=== PATIENT | male | born 1970 | race African-American/Black ===

== ENCOUNTER 2020-02-03 17:04 | Emergency (ER) | payer BC, SELFPAY ==
--- NOTE | ~2020-02-03 | XR_ITS ---
XR knee LT min 4V 02/03/2020 18:40 Indication: Left knee pain Procedure: 4 views left knee Comparison: No prior studies for comparison. Findings: Mild-moderate osteoarthritis of the left knee. Small joint effusion. No fracture or traumat ic malalignment. No foreign bodies. Impression: 1: No acute fracture. 2: Mild-moderate osteoarthritis. 3: Small joint effusion. Reviewed, dictated and finalized at location A. Impression: 1: No acute fracture. 2: Mild-moderate osteoarthritis. 3: Small joint effusion.
[2020-02-03 17:43] VITALS: BP 199/119; PULSE 99; RESP 16; TEMP 37.1; O2SAT 98
--- NOTE | 2020-02-03 19:52 | ED.GENADULT ---
HPI - General Adult General Chief complaint: Extremity Injury, Lower <Jere Stahl PA-C - Last Filed: 02/03/20 19:57> Stated complaint: left knee pain <Jere Stahl PA-C - Last Filed: 02/03/20 19:57> Time Seen by Provider: 02/03/20 19:22 <Jere Stahl PA-C - Last Filed: 02/03/20 19:57> Source: patient <Jere Stahl PA-C - Last Filed: 02/03/20 19:57> Mode of arrival: ambulatory <Jere Stahl PA-C - Last Filed: 02/03/20 19:57> Limitations: no limitations <Jere Stahl PA-C - Last Filed: 02/03/20 19:57> History of Present Illness HPI narrative: Patient is a 50-year-old male who presents to emergency department for evaluation of left knee pain noting aching pain to the lateral aspect of the left knee for the last several days patient notes he has had pain for months in this knee even years potentially patient denies any new injury or trauma presents in no distress pain is worse with lying notes he gets intermittent cramping but otherwise denies any other complaints <Jere Stahl PA-C - Last Filed: 02/03/20 19:57> Related Data Allergies/adverse reactions: Allergies Allergy/AdvReac Type Severity Reaction Status Date / Time No Known Allergies Allergy Unverified 08/29/19 10:49 <Jere Stahl PA-C - Last Filed: 02/03/20 19:57> Review of Systems Review of Systems: All systems reviewed & are unremarkable except as noted in HPI and below <Jere Stahl PA-C - Last Filed: 02/03/20 19:57> [facility] Past Medical History Medical History: Medical History Benign reactive hypertension Gout Morbid (severe) obesity due to excess calories Morbid obesity <Jere Stahl PA-C - Last Filed: 02/03/20 19:57> Social History Social History: Social History Social History: Single Smoking status: Never smoker Second hand tobacco smoke exposure: No Alcohol intake: current Drinks per week: 2 Substance use: never Substance use type: does not use Gender identity (if verbalized by the patient): Male <MIRNA Woody Last Filed: 02/03/20 19:57> Exam Narrative: Exam Narrative: GENERAL: Well-appearing, well-nourished, and in no acute distress. HEAD: Normocephalic, atraumatic. EYES: PERRLA and EOMI. ENT: Nares clear, no rhinorrhea or epistaxis. Mucous membranes moist. CHEST: Clear to auscultation. No respiratory distress. No wheezes rales or rhonchi HEART: Regular rate and rhythm. No murmur heard. EXTREMITIES: Normal range of motion. No edema. Tenderness along the medial aspect left knee remainder of extremity nontender no deformities SKIN: Warm, dry, no rash. NEURO: No focal deficits. Alert and oriented x3. Neurovascularly intact PSYCH: Normal mood and affect. <MIRNA Woody Last Filed: 02/03/20 19:57> Course Course Emergency Course: Patient in the room in no distress advised to follow with primary care and provided orthopedic referral unremarkable radiographs <MIRNA Woody Last Filed: 02/03/20 19:57> Vital Signs Vital signs: Vital Signs Temperature 98.8 F 02/03/20 17:43 Pulse Rate 99 02/03/20 17:43 Respiratory Rate 16 02/03/20 17:43 Blood Pressure 199/119 H 02/03/20 17:43 Pulse Oximetry 98 02/03/20 17:43 Temperature 98.8 F 02/03/20 17:43 Pulse Rate 88 02/03/20 20:10 Respiratory Rate 18 02/03/20 20:10 Blood Pressure 150/70 H 02/03/20 20:10 Pulse Oximetry 99 02/03/20 20:10 <MIRNA Woody Last Filed: 02/03/20 19:57> Vital Signs Temperature 98.8 F 02/03/20 17:43 Pulse Rate 99 02/03/20 17:43 Respiratory Rate 16 02/03/20 17:43 Blood Pressure 199/119 H 02/03/20 17:43 Pulse Oximetry 98 02/03/20 17:43 Temperature 98.8 F 02/03/20 17:43 Pulse Rate 88 02/03/20 20:10 Respiratory Rate 18
[2020-02-03 20:10] VITALS: BP 150/70; PULSE 88; RESP 18; O2SAT 99
== END 2020-02-03 20:11 | disposition home or self-care (01) ==
PROVIDERS: Emergency Provider General Practice; PCP Family Medicine
DX: M25.562 Pain in left knee (principal); I10 Essential (primary) hypertension; M10.9 Gout, unspecified; E66.01 Morbid (severe) obesity due to excess calories; Z68.41 Body mass index [BMI] 40.0-44.9, adult; M17.12 Unilateral primary osteoarthritis, left knee
CPT/HCPCS: 73564; 99283

== ENCOUNTER 2020-03-24 14:21 | Outpatient (CLI) | payer BC, SELFPAY ==
--- NOTE | ~2020-03-24 | XR_ITS ---
EXAMINATION: XR chest 2V DATE: 03/24/2020 14:34 INDICATION: Shortness of breath TECHNIQUE: PA and lateral views of the chest were obtained. COMPARISON: None FINDINGS: The lungs are clear with no focal airspace opacities, pulmonary edema, pleural effusion or pneumothor ax. The cardiomediastinal silhouette is normal. Mild thoracic spondylosis. IMPRESSION: 1. No acute cardiopulmonary disease. Reviewed, dictated and finalized at location A.
== END 2020-03-24 14:22 | disposition home or self-care (01) ==
PROVIDERS: PCP Family Medicine; Visit Provider Family Medicine
DX: R06.02 Shortness of breath (principal)
CPT/HCPCS: 71046

== ENCOUNTER 2020-04-27 14:10 | Observation (INO) | payer BC, SELFPAY ==
[2020-04-27] VITALS (45 sets, daily range): BP systolic 140–222; BP diastolic 108–152; PULSE 88–107; RESP 19–34; TEMP 36.7–37; O2SAT 95–100; BMI 44.9
--- NOTE | ~2020-04-27 | US_ITS ---
EXAMINATION: US retroperitoneal duplex ltd DATE: 04/28/2020 14:05 CDT INDICATION: Accelerated hypertension. TECHNIQUE: Sonographic imaging of the kidneys was performed with a 3.5 MHz transducer. Retroperitone al duplex sonogram of the renal arteries also obtained. FINDINGS: No focal flow abnormalities are seen in the renal arteries on color Doppler. The peak syst olic velocity ranges of the right and left renal arteries and aorta are 62 cm per second, 59 cm per s econd, and 60 cm per second, respectively. The velocities and renal to aortic ratios are within maria isabel l limits. IMPRESSION: 1. No Doppler evidence of renal artery stenosis. Reviewed, dictated and finalized at location B.
--- NOTE | ~2020-04-27 | XR_ITS ---
EXAMINATION: XR chest 2V DATE: 04/27/2020 14:47 INDICATION: Shortness of breath. Abnormal electrocardiogram. TECHNIQUE: Frontal and lateral views of the chest were obtained. COMPARISON: Chest 2 views 03/24/2020 FINDINGS: The chest demonstrates clear lungs without pneumonia, pleural effusion, or pneumothorax. Th e heart size is normal. IMPRESSION: 1. No acute cardiopulmonary disease. Reviewed, dictated and finalized at location A.
--- NOTE | ~2020-04-27 | CT_ITS ---
EXAMINATION: CTA chest PE protocol DATE: 04/27/2020 16:19 INDICATION: Shortness of breath. Abnormal electrocardiogram. TECHNIQUE: Computed tomography angiography (CTA) of the chest was performed with 100 mL Omnipaque-350 intravenous contrast timed to evaluate the pulmonary arteries. Coronal maximum intensity projection 3D-reconstructions were created by the technologist. Automated exposure control and iterative reconst ruction technique were employed. The dose-length product was 1054.07 mGy-cm. COMPARISON: None. FINDINGS: The visualized portions of the lung bases demonstrate mild atelectasis. There is a 4 mm nod ule in right lower lobe, likely benign. No pleural effusion. Cardiomegaly is noted. No pericardial ef fusion. There is no pulmonary embolus. There is ectasia of ascending aorta measuring 4.2 cm. There ar e bridging endplate osteophytes at multiple levels in the spine, consistent with diffuse idiopathic s keletal hyperostosis (DISH). IMPRESSION: 1. No pulmonary embolus. Reviewed, dictated and finalized at location A. IMPRESSION: 1. No pulmonary embolus.
--- NOTE | 2020-04-27 14:11 | ECG_ITS ---
Measurements Intervals [place] Rate: 103 P: 56 UT: 140 QRS: -13 QRSD: 88 T: 70 QT: 362 QTc: 475 Interpretive Statements SINUS TACHYCARDIA LEFT ATRIAL ENLARGEMENT DELAYED PRECORDIAL R/S TRANSITION POSSIBLE LEFT VENTRICULAR HYPERTROPHY BORDERLINE T WAVE ABNORMALITY- HIGH LATERAL LEADS BASELINE ARTIFACT- AVL, V2 BORDERLINE ECG Electronically Signed On 04-27-2020 15:12:05 CDT by Percy Gama D.O.
[2020-04-27 14:35] LABS: Basophils Absolute Auto 0.1 K/mm3 (0.0-0.1); Basophils Percent Auto 0.4 % (0.2-1.2); Eosinophils Absolute Auto 0.7 K/mm3 (0-0.3); Eosinophils Percent Auto 4.2 % (0-4.4); Hematocrit 45.7 % (42.0-52.0); Immature Granulocyte Absolute 0.06 K/mm3 (0.00-0.031); Immature Granulocyte Percent A 0.4 % (0-0.5); Lymphocytes Absolute Auto 3.66 K/mm3 (0.9-3.2); Lymphocytes Percent Auto 22.7 % (18.3-44.2); Mean Corpuscular HGB Conc 32.8 g/dl (32-36); Mean Corpuscular Hemoglobin 26.3 pg (26-34); Mean Platelet Volume 10.8 fl (7.4-10.4); Monocytes Absolute Auto 1.1 K/mm3 (0.1-0.6); Neutrophils Absolute Auto 10.5 K/mm3 (1.3-6.7); Neutrophils Percent Auto 65.3 % (45.5-73.1); Platelet Count Result 282 k/mm3 (150-375); Red Blood Count 5.71 M/mm3 (4.6-6.20); Red Cell Distribution Width 15.9 % (11.5-14.5); White Blood Count 16.1 K/mm3 (4.5-10.0)
[2020-04-27 14:43] LABS: Anion Gap 8 mmol/L (8-16); Blood Urea Nitrogen 20 mg/dL (9-20); Calcium 8.7 mg/dL (8.4-10.2); Carbon Dioxide 29 mmol/L (22-30); Chloride 104 mmol/L (98-107); Estimated CRCL calculation 79 ml/min; Estimated Glomerular Filt Rate > 60; Glucose 96 mg/dL (75-110); Potassium 3.2 mmol/L (3.4-5.0); Sodium 141 mmol/L (137-145)
--- NOTE | 2020-04-27 14:46 | ED.GENADULT ---
HPI - General Adult General Chief complaint: Shortness of Breath/Dyspnea Stated complaint: abnormal EKG per PCP Time Seen by Provider: 04/27/20 14:23 Source: patient History of Present Illness HPI narrative: Patient is a 50 y/o male complaining of mild shortness of breath for 2 weeks. He states that fast walking or other exertion aggravates his SOB. He has no chest pain, cough or fever. He was seen in his doctor's office today. He had EKG done and was told that his EKG looked abnormal and he was sent to ED. Related Data Home Medications Medication Instructions Recorded Confirmed amlodipine 10 mg PO DAILY 04/27/20 04/27/20 lisinopril 04/27/20 Allergies Allergy/AdvReac Type Severity Reaction Status Date / Time No Known Allergies Allergy Verified 04/27/20 14:20 Review of Systems Constitutional: Constitutional: Denies chills, Denies fever(s), Reports headache(s) and Denies weakness Eyes: Eyes: Denies blurry vision ENT: Reports headache(s) and Denies neck pain Cardiovascular: Cardiovascular: Denies chest pain and Reports dyspnea Respiratory: Respiratory: Denies cough and Reports dyspnea Gastrointestinal: Gastrointestinal: Denies abdominal pain, Denies diarrhea, Denies nausea and Denies vomiting Genitourinary: Genitourinary: Denies hematuria and Denies dysuria Musculoskeletal: Musculoskeletal: Denies back pain and Denies neck pain Neurologic: Reports headache(s) and Denies weakness [facility] Past Medical History Medical History (Updated 04/27/20 @ 19:02 by Gemini Brock MD) Benign reactive hypertension Gout Morbid (severe) obesity due to excess calories Morbid obesity Social History Social History Social History: Single Smoking status: Never smoker Second hand tobacco smoke exposure: No Alcohol intake: current Substance use: never Substance use type: does not use Gender identity (if verbalized by the patient): Male Sexual Orientation (if Verbalized by the Patient): Straight or Heterosexual Exam Const: General: no acute distress and well developed Orientation/consciousness: oriented to person, oriented to place, oriented to time and patient oriented x3 HENMT: Head: normocephalic Ears: external ears normal General nose exam: Normal external nose present Eyes: General: appearance normal, both eyes and all related structures Conjunctivae: conjunctivae normal Neck: Neck: normal visual inspection and full ROM Chest: Chest palpation & inspection: normal inspection of the chest and no tenderness Resp: Effort & Inspection: normal respiratory effort Auscultation: clear to auscultation bilaterally Cardio: Rate: regular rate Rhythm: regular rhythm GI: GI Palp: No abdominal tenderness and Yes Soft to palpation Skin: General skin exam: normal color and turgor normal Neuro: General: oriented to person, oriented to place, oriented to time and patient oriented x3 Cognition (Neuro): normal cognition Extrem: General: normal to inspection, full ROM and no pedal edema Psych: Appearance: grossly normal Mental Status: mental status grossly normal Affect: normal affect Course Consultations Consultation #1: Discussed with JASMINE Manzo, who agrees to admit to Dr. Arredondo. Date: 04/27/20 Time: 16:57 Consultation #2: Discussed with Dr. Narvaez, who agrees to consult. Date: 04/27/20 Time: 17:34 Vital Signs Vital signs: Vital Signs Temperature 37.0 C 04/27/20 14:15 Pulse Rate 104 H 04/27/20 14:15 Respiratory Rate 32 H 04/27/20 14:15 Blood Pressure 222/142 H 04/27/20 14:15 Pulse Oximetry 100 04/27/20 14:15 Temperature 37.0 C 04/27/20 14:15 Pulse Rate 96 04/27/20 18:48 Respiratory Rate 20 04/27/20 18:48 Blood Pressure 160/123 H 04/27/20 18:48 Pulse Oximetry 99 04/27/20 18:48 Medical Decision Making Vital Signs Vital Signs: Vital Signs Temperature 37.0 C 04/27/20 14:15 Pulse Rate 104 H
[2020-04-27] MEDS: amLODIPine BESYLATE 5 MG TABLET 10 MG PO ×2 (15:07→22:31)
[2020-04-27 15:10] LABS: D Dimer 1.31 ug/mL (<0.48)
[2020-04-27] MEDS: POTASSIUM CHLORIDE 20 MEQ TABLET 40 MEQ PO (15:12)
[2020-04-27] MEDS: LABETALOL HCL INJ 100 MG/20 ML VIAL 20 MG IV PUSH ×2 (15:16→15:59)
[2020-04-27 15:27] LABS: NT Pro B Type Natriuretic Pept 665 PG/ML (5-100); Troponin I 0.041 ng/mL (0.000-0.034)
[2020-04-27] MEDS: cloNIDine HCL 0.1 MG TABLET 0.2 MG PO (16:40)
[2020-04-27] MEDS: hydrALAZINE HCL 20 MG/ML VIAL IV PUSH (16:40)
--- NOTE | 2020-04-27 17:55 | PC.NURSE ---
Informed by erp to hold Cardene drip until pt gets to floor.
[2020-04-27 18:02] LABS: Troponin I 0.039 ng/mL (0.000-0.034)
--- NOTE | 2020-04-27 19:30 | PM.IMHP ---
H&P: HPI History of Present Illness Date/Time: 04/27/20 19:30 Chief complaint: Abnormal EKG. Narrative: Lawrence Petty Jr. is a 50-year-old male with hypertension, suspected obstructive sleep apnea, and gout who presented to the emergency department earlier today for evaluation after he was found to have an abnormal EKG at his primary care provider's office. He had a routine appointment with Dr. Hill today, for a blood pressure check and to be set up with what sounds like a home apnea screening. His systolic blood pressure was over 200 prompting an EKG which was abnormal. Blood pressure has been as high as 221/152 since arrival to the emergency department and with further questioning he has been monitoring his pressures at home. It sounds as though they are always quite high, in the 170s to 180 systolic over the 110s to 120 diastolic. For the past 2 weeks, however, he has had readings around 200/130 and he has put himself on light duty at work because of that. For the last 1.5 weeks he has had intermittent frontal headaches, mainly near the right church, and has noticed some increase in shortness of breath. He goes on to say that for the last month and a half he has had progressive dyspnea on lesser and lesser exertion and it is now to the point where he will have to stop retirement up a flight of steps in order to catch his breath. He also reports orthopnea, PND, and daytime somnolence. He has intermittent lower extremity edema as well. He denies fever, chills, sweats, nausea, vomiting, chest pain, pleuritic pain, change in urine output, auditory and visual changes, focal weakness, paresthesias, and vertigo. Review of Systems Review of Systems: Narrative: Twelve systems were reviewed with pertinent positives and negatives as per HPI. Weight has remained stable. No fever, chills, or sweats. He denies cough. No sick contacts. He denies exposure to those positive for COVID-19. No diarrhea or dysuria. Except as documented, all other systems were reviewed and are negative. [facility] Past Medical History Medical History (Updated 04/28/20 @ 02:14 by Anais Duggan PA-C) Elevated fasting blood sugar Hemoglobin A1c in March 2020 was 5.8%. Gout Hypertension Morbid obesity Surgical History Surgical History (Updated 04/28/20 @ 02:14 by Anais Duggan PA-C) Status post ORIF of fracture of ankle (~1996) Left. Family History Family History (Updated 04/28/20 @ 02:08 by Anais Duggan PA-C) Father Cerebrovascular accident Mother Hypertension Sibling Brain aneurysm Social History Social History (Updated 04/28/20 @ 02:08 by Anais Duggan PA-C) Social History: Surrogate decision maker: Niko Petty, cousin. Code status: Full code. Smoking status: Never smoker Second hand tobacco smoke exposure: No Alcohol intake: former Alcohol use details: No alcohol consumption 30 days. Prior to that he would drink between a 6 and a 12 pack on the weekends and occasionally half a pt of liquor. Substance use: never Substance use type: does not use Additional living arrangements comments: The patient resides in [place] with his elderly mother. Not . Has 2 children. Additional occupation/education comments: [employer] in [employer] services. Gender identity (if verbalized by the patient): Male Sexual Orientation (if Verbalized by the Patient): Straight or Heterosexual Spiritual care concerns: No Meds Home Medications and Allergies Home Medications Medication Instructions Recorded Confirmed Type colchicine 0.6 mg capsule 0.6 mg PO DAILY #30 cap 01/08/20 04/27/20 Rx allopurinol 300 mg tablet 300 mg PO DAILY #30 tablet 03/09/20 04/27/20 Rx furosemide 20 mg tablet 20 mg PO QAM PRN #30 tablet 03/09/20 04/27/20 Rx hydralazine 25 mg tablet 25 mg PO BID #60 tablet 03/24/20 04/27/20 Rx amlodipine 10 mg PO DAILY 04/27/20 04/27/20 History lisinopril 20 mg PO DAILY 04/27/20
--- NOTE | 2020-04-27 19:33 | ADMGEN ---
This patient, Lawrence Petty Jr., was admitted to Intensive Care Unit-8 at 1855. Patient/family oriented to hospital policies and general routines including ID bracelet, bed and alarms, visiting hours, pain management, procedures, bathroom and other care routines, personal items, smoking policy, room service/diet, and visiting hours. Information on how to activate the Rapid Response Team has been discussed. Patient/Family are encouraged to report perceived risks to care and to ask questions if they do not understand what they are told or what they should do.
--- NOTE | 2020-04-27 19:59 | PC.NURSE ---
Was told in report that Rosanna Duggan wanted to hold off on cardene drip at this time and watch blood pressure.
[2020-04-27 21:14] LABS: Troponin I 0.036 ng/mL (0.000-0.034)
[2020-04-27] MEDS: ACETAMINOPHEN 325 MG TABLET 650 MG PO (21:25)
[2020-04-27] MEDS: hydrALAZINE HCL 50 MG TABLET PO (22:30)
[2020-04-27] MEDS: HYDROcodone/acetaminophen (*CRX) 5-325 MG TABLET 1 TAB PO (23:35)
[2020-04-28] VITALS (17 sets, daily range): BP systolic 130–196; BP diastolic 85–138; PULSE 85–99; RESP 12–28; TEMP 36.5–37; O2SAT 94–98
--- NOTE | 2020-04-28 | ECHO_ITS ---
Patient Info Name: Lawrence Petty Age: 50 years : 1970 Gender: Male Ht: 70 in Wt: 313 lbs BSA: 2.72 m2 HR: 90 bpm BP: 159 / 120 mmHg Heart Rhythm: Sinus Rhythm Technical Quality: Good Exam Date: 04/28/2020 11:31 AM Exam Location: [facility] Patient Status: Inpatient Admit Date: 04/27/2020 Staff Ordering Physician: Lisa Narvaez MD Leaf Tinner: Sb Devine RDCS Attending Provider: Rick Arredondo MD Referring Physician: Brice STALEY; Exam Type: CA echo doppler color flow Study Info Indications R06.02 - Shortness of breath Complete two-dimensional, color flow and Doppler transthoracic echocardiogram is performed. Strain analysis performed. History/Risk Factors Hypertensive urgency w/ chest pain, abnormal EKG, [place], edema. Summary 1. Complete two-dimensional, color flow and Doppler transthoracic echocardiogram is performed. 2. There is moderate concentric increased left ventricular wall thickness. 3. Left ventricular systolic function is mildly reduced, estimated at 50-55%. 4. Calculated ejection fraction was somewhat lower at 41%. 5. Mild mitral regurgitation. 6. Trivial aortic regurgitation. Left Ventricle Left ventricular chamber dimension is normal. Left ventricular systolic function is mildly reduced, estimated at 50-55%. There is moderate concentric increased left ventricular wall thickness. The left ventricular diastolic function is grade II diastolic dysfunction. Right Ventricle Right ventricular chamber dimension is normal. Left Atria Left atrial chamber dimension is normal. Right Atria Right atrial chamber dimension is normal. Aortic Valve The aortic valve is trileaflet. There is trace aortic valve regurgitation. Pulmonic Valve The pulmonic valve is normal. There is trace pulmonic regurgitation. Mitral Valve The mitral valve has normal leaflets. There is mild mitral valve regurgitation. Tricuspid Valve The tricuspid valve leaflets are normal. Pericardium/Pleural The pericardium appears normal. Aorta The aortic root size at the sinus of Valsalva is normal. Left Ventricular Outflow Tract Name Value Normal LVOT 2D LVOT Diameter 2.4 cm LVOT Doppler LVOT Peak Gradient 4 mmHg LVOT Mean Gradient 2 mmHg LVOT VTI 15 cm LVOT VTI/AV VTI Ratio 0.7 LVOT Stroke Volume 65 ml LVOT CO 5.8 l/min LVOT CI 2.1 l/min/m2 Mitral Valve Name Value Normal MV Doppler MV Peak Gradient 1 mmHg MV Mean Gradient 0 mmHg MV Decel [place] 837 cm/s2 MV PHT 27 ms
[2020-04-28 07:10] LABS: Hematocrit 43.1 % (42.0-52.0); Hemoglobin 14.4 g/dL (14.0-18.0); Mean Corpuscular HGB Conc 33.4 g/dl (32-36); Mean Corpuscular Volume 77.9 fl (80-100); Mean Platelet Volume 9.9 fl (7.4-10.4); Platelet Count Result 256 k/mm3 (150-375); Red Blood Count 5.53 M/mm3 (4.6-6.20); Red Cell Distribution Width 15.9 % (11.5-14.5); White Blood Count 12.3 K/mm3 (4.5-10.0)
[2020-04-28] MEDS: hydrALAZINE HCL 50 MG TABLET PO ×2 (07:23→17:16)
[2020-04-28] MEDS: allopurinoL 300 MG TABLET PO (07:23)
[2020-04-28] MEDS: lisinopriL 20 MG TABLET PO (07:23)
[2020-04-28] MEDS: COLCHICINE 0.6 MG TABLET PO (07:23)
[2020-04-28 07:26] LABS: Alanine Aminotransferase 17 U/L (4-50); Albumin Level 3.9 g/dL (3.5-5.1); Alkaline Phosphatase 101 U/L (38-126); Anion Gap 11 mmol/L (8-16); Aspartate Amino Transferase 23 U/L (17-59); Bilirubin,Total 0.7 mg/dL (0.2-1.3); Blood Urea Nitrogen 14 mg/dL (9-20); Calcium 8.6 mg/dL (8.4-10.2); Carbon Dioxide 27 mmol/L (22-30); Chloride 106 mmol/L (98-107); Estimated CRCL calculation 96 ml/min; Estimated Glomerular Filt Rate > 60; Glucose 112 mg/dL (75-110); Sodium 144 mmol/L (137-145)
--- NOTE | 2020-04-28 08:51 | WPDCNINT ---
Assessment and Plan Assessment and plan (1) Hypertensive urgency: Code(s): I16.0 - Hypertensive urgency Status: Acute Assessment and Plan: patient presented with hypertensive emergency with blood pressures of 221/152 in the ER. - Patient's baseline blood pressures of 170s to 180s over 110s to 120. - Patient was restarted on hydralazine, lisinopril and amlodipine with improvement in his blood pressures - nicardipine infusion was not started. - Will not drop blood pressures too low too quickly due to risk of stroke (2) Acute kidney injury: Code(s): N17.9 - Acute kidney failure, unspecified Status: Acute Assessment and Plan: creatinine down to 1.2 from 1.5 on admission. given elevated blood pressures, patient is at risk for renal disease - will obtain renal artery duplex studies - patient continuing oral fluid intake - will monitor renal function, electrolytes and urine output (3) Hypokalemia: Code(s): E87.6 - Hypokalemia Status: Acute Assessment and Plan: will replete potassium (4) Morbid obesity: Code(s): E66.01 - Morbid (severe) obesity due to excess calories Status: Acute Assessment and Plan: counseled patient on weight loss, exercise and healthy living Additional Plan discussed with patient at length and updated with his condition and plan of care. Code status: Full code critical care time spent: 44 minutes Due to a high probability of clinically significant, life threatening deterioration, the patient required my highest level of preparedness to intervene emergently and I personally spent this critical care time directly and personally managing the patient. This critical care time included obtaining a history; examining the patient; pulse oximetry; ordering and review of studies; arranging urgent treatment with development of a management plan; evaluation of patient's response to treatment; frequent reassessment; and discussions with other providers. It was exclusive of separately billable procedures and treating other patients and teaching time. Please see Assessment and Plan section and the rest of the note for further information on patient assessment and treatment [employer] Consult Note Consult date: 04/28/20 Time Seen: 06:58 Reason for consult: hypertensive urgency HPI: Lawrence Petty Jr. is a 50 year old male with past medical history of essential hypertension, elevated flash 10 blood sugar, gout, morbid obesity presented to the ED on 04/27/2020 from primary care doctor's office with some EKG changes and hypertensive urgency. His blood pressure was 221/152. And the patient he hovers between 170s to 180s systolic over 110s to 120s diastolic. Patient has been taking his medications regularly. Stated that over the past 2 weeks his Systolic blood pressures have been around 200 and his diastolic pressures between 120s to 130s. He has been having some frontal headaches, increasing shortness of breath. He also reported orthopnea, paroxysmal next nocturnal dyspnea and daytime somnolence. Also complains of intermittent lower extremity edema. Patient was given multiple p.o. medications in the ER. Patient's repeat systolic blood pressures were between 140s to 180s. Nicardipine infusion was never started. Patient seen and examined this morning in the ICU, denies any headaches, visual changes, shortness of breath. States he feels better. Patient denies any tobacco use, illicit drug abuse, has not had a alcohol drinking 30 days. Patient states he normally drinks a little heavy on the weekends but not during the working days. troponins was mildly elevated 0.041, 0.039, 0.036. At and is back to normal at 1.2 ( 1.5 on admission). D-dimer was elevated in the ER patient had a CTA scan of the chest, which did not show any pulmonary embolism. Chest x-ray the ER did not show any cardiopulmonary disease. Patient currently on room air with good O2 sats
--- NOTE | 2020-04-28 10:06 | PM.CNCAR ---
Assessment and Plan Additional Plan This is a 50-year-old black male with longstanding hypertension which obviously is poorly controlled on his current regimen. Interestingly his PCP has selected 3 vasodilators to treat this and despite this regimen blood pressure is continuing to be problematic. I am going to initiate adjusting his regimen by adding a beta-olivia. Metoprolol 50 mg q.12 hours will be started as of today and we will observe his response to that. His blood pressure obviously does not have to be come ideal while he is in the hospital but 1 would like to improved significantly from his the current situation. An echocardiogram has been requested which is appropriate as we try to recommend medical adjustments to his hypertension regimen. I will of course review that after it takes place later today. Further recommendations will be based on review of those findings and response to treatment. Following discharge we may or may not have to continue to follow this patient in the office depending on echocardiographic findings. Camron Rico MD [facility] History of Present Illness History of Present Illness Consult date/time: 04/28/20 10:06 Consult reason: hypertension Reason For Visit: Abnormal EKG. Narrative: This is a 50-year-old man who I am seeing at the request of the hospitalist/building estimator to become involved in his case as it pertains to hypertension management. It does not appear that there is a separate cardiac problem going on here. The patient has a history of hypertension that began in his mid 30s and has been treated initially by a physician in the [place] area and more recently transferred his care to his current PCP. He states that his blood pressure has not been well controlled despite taking medications and he reports to be compliant with them. His current regimen and clue did amlodipine, hydralazine and lisinopril. He went to his PCP yesterday for a routine checkup and I do not believe was having any symptoms that he tells me but his blood pressure was quite high with systolics is in excess of 200 mmHg. He states an ECG was done and there was concern about the appearance of his electrocardiogram so he was sent to the emergency room where he was evaluated and then admitted to the hospital. The ED physician looks like they gave him a dose of clonidine and potentially ordered a nicardipine infusion I do not know that any of that was ever given. He is in the ICU room 8. Right now and is supine and appears to be essentially comfortable. Again he does not report any previous knowledge of any cardiac problems. He in fact he states he has really never been hospitalized overnight in the past. 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 He does have a family history of relatively severe hypertension but no family history of premature coronary artery disease. He denies any symptoms of chest pain pressure or heaviness he is not experiencing any palpitations orthopnea or PND. Review of Systems Constitutional: Constitutional: Reports no additional constitutional complaints Eyes: Eyes: Reports no additional eye complaints ENT: Reports system reviewed and no additional complaints, except as documented Cardiovascular: Cardiovascular: Reports no additional cardiovascular complaints Respiratory: Respiratory: Reports no additional respiratory complaints Gastrointestinal: Gastrointestinal: Reports no additional gastrointestinal complaints Musculoskeletal: Musculoskeletal: Reports no additional musculoskeletal complaints Neurologic: Reports system reviewed and no additional complaints, except as documented Endocrine: Endocrine: Reports no additional endocrine complaints Hematologic/Lymphatic: Hematologic/Lymphatic: Reports no additional hematologic/lymphatic complaints Allergic/Immunologic: Allergic/Immunologic: Reports no additional allergic/immunologic complaints PMFSH Past Medical Hi
[2020-04-28] MEDS: POTASSIUM CHLORIDE 20 MEQ TABLET 40 MEQ PO (10:45)
[2020-04-28] MEDS: METOPROLOL TARTRATE 50 MG TAB PO ×2 (10:46→20:40)
[2020-04-28] MEDS: POTASSIUM CHLORIDE 20 MEQ TABLET PO (10:46)
--- NOTE | 2020-04-28 15:56 | PM.IMPN ---
Progress Note: A&P Assessment and Plan (1) Hypertensive urgency: Code(s): I16.0 - Hypertensive urgency Status: Acute Assessment and Plan: 04/28/20 15:56 patient is a 50-year-old male with history of hypertension patient has been seen by his primary physician and had been taking amlodipine, hydralazine and lisinopril to control his blood pressure patient states he is compliant with his medication however his blood pressure remains high, he was seen by his primary care physician for routine check he did not have any complaints however his systolic blood pressure was over 200, an EKG was abnormal, patient was referred to the emergency department for further evaluation, currently patient is in ICU room 8. he was seen by fuel distribution system operator and recommended patient will benefit adding metoprolol 50 mg b.i.d. to his current regimen, will continue to monitor his blood pressure while in the hospital, to further evaluate patient had a renal artery ultrasound which did not show any stenosis, cardiac echo is pending. upon arrival patient had mildly elevated tropes and flat unlikely acute coronary syndrome rather demand ischemia due to severely elevated systolic blood pressure, patient was seen by fuel distribution system operator and ischemic workup is recommended. currently patient denies any chest pain shortness of breath palpitation fever or chills, his mother is present in the room (2) Elevated serum creatinine: Code(s): R79.89 - Other specified abnormal findings of blood chemistry Status: Acute Assessment and Plan: most likely secondary longstanding hold hypertension will monitor (3) Hypokalemia: Code(s): E87.6 - Hypokalemia Status: Acute Assessment and Plan: will supplement (4) Shortness of breath: Code(s): R06.02 - Shortness of breath Status: Acute Assessment and Plan: resolved (5) Elevated troponin level: Code(s): R77.8 - Other specified abnormalities of plasma proteins Status: Acute Assessment and Plan: mildly and flat unlikely acute coronary syndrome (6) Leukocytosis: Code(s): D72.829 - Elevated white blood cell count, unspecified Status: Acute Assessment and Plan: most likely secondary to stress due to elevated blood pressure trending down (7) Gout: Code(s): M10.9 - Gout, unspecified Status: Acute Assessment and Plan: clinically stable (8) Morbid obesity: Code(s): E66.01 - Morbid (severe) obesity due to excess calories Status: Acute Assessment and Plan: patient will benefit from dietary consult (9) Suspected sleep apnea: Code(s): R29.818 - Other symptoms and signs involving the nervous system Status: Acute Assessment and Plan: patient will benefit from sleep study and pulmonology consult Subjective Date/time seen: 04/28/20 15:56 patient is a 50-year-old male with history of hypertension patient has been seen by his primary physician and had been taking amlodipine, hydralazine and lisinopril to control his blood pressure patient states he is compliant with his medication however his blood pressure remains high, he was seen by his primary care physician for routine check he did not have any complaints however his systolic blood pressure was over 200, an EKG was abnormal, patient was referred to the emergency department for further evaluation, currently patient is in ICU room 8. he was seen by fuel distribution system operator and recommended patient will benefit adding metoprolol 50 mg b.i.d. to his current regimen, will continue to monitor his blood pressure while in the hospital, to further evaluate patient had a renal artery ultrasound which did not show any stenosis, cardiac echo is pending. upon arrival patient had mildly elevated tropes and flat unlikely acute coronary syndrome rather demand ischemia due to severely elevated systolic blood pressure, chiara
--- NOTE | 2020-04-28 16:19 | PC.NURSE ---
1410-PATIENT TRANSFERRED TO ROOM 259. REPORT GIVEN TO LUCIANO BARKER. ALL QUESTIONS ANSWERED.
[2020-04-28] MEDS: amLODIPine BESYLATE 5 MG TABLET 10 MG PO (17:15)
[2020-04-29] VITALS (15 sets, daily range): BP systolic 145–181; BP diastolic 90–106; PULSE 81–98; RESP 15–20; TEMP 36.4–37.1; O2SAT 98–99
[2020-04-29 08:08] LABS: Anion Gap 9 mmol/L (8-16); Blood Urea Nitrogen 16 mg/dL (9-20); Calcium 8.9 mg/dL (8.4-10.2); Carbon Dioxide 27 mmol/L (22-30); Chloride 106 mmol/L (98-107); Estimated CRCL calculation 98 ml/min; Estimated Glomerular Filt Rate > 60; Glucose 106 mg/dL (75-110); Magnesium 2.1 mg/dL (1.6-2.3); Potassium 3.3 mmol/L (3.4-5.0); Sodium 142 mmol/L (137-145)
[2020-04-29] MEDS: COLCHICINE 0.6 MG TABLET PO (08:57)
[2020-04-29] MEDS: lisinopriL 20 MG TABLET PO (08:57)
[2020-04-29] MEDS: METOPROLOL TARTRATE 50 MG TAB PO ×2 (08:57→20:31)
[2020-04-29] MEDS: hydrALAZINE HCL 50 MG TABLET PO ×3 (08:58→21:22)
[2020-04-29] MEDS: allopurinoL 300 MG TABLET PO (10:14)
--- NOTE | 2020-04-29 15:27 | PM.PNCARD ---
Progress Note: A&P Assessment and Plan (1) Hypertensive urgency: Code(s): I16.0 - Hypertensive urgency Status: Acute Assessment and Plan: BP remains significantly elevated. and remains poorly controlled. Increase hydralazine to 50 mg 3 times daily. EF mildly reduced at 50-55% with moderate LVH most likely hypertensive heart disease. No CHF. Repeat BP after hydralazine 50 mg now and repeat in 1-2 hours. If BP significantly improved and remains so may consider discharge later this evening, however, anticipate he will need to stay overnight to ensure blood pressure remains better controlled. This will be deferred to the primary service as there are no other acute cardiovascular issues at this time. (2) Acute kidney injury: Code(s): N17.9 - Acute kidney failure, unspecified Status: Acute Assessment and Plan: Improved, creatinine 1.2 this morning. (3) Hypokalemia: Code(s): E87.6 - Hypokalemia Status: Acute Assessment and Plan: Remains low at 3.3 and has not been supplemented. As such, will give 40 mEq p.o. x1 potassium chloride. Check BMP in a.m.. Subjective Date/time seen: Date of service: 04/29/20 15:27 Follow-up for uncontrolled hypertension. Feels well denies shortness of breath, chest pain, dizziness or palpitations. No new issues overnight. BP variable but remains elevated. Tolerating medications thus far. Review of Systems Constitutional: Constitutional: Reports no additional constitutional complaints Eyes: Eyes: Reports no additional eye complaints ENT: Reports system reviewed and no additional complaints, except as documented Cardiovascular: Cardiovascular: Reports no additional cardiovascular complaints Respiratory: Respiratory: Reports no additional respiratory complaints Gastrointestinal: Gastrointestinal: Reports no additional gastrointestinal complaints Musculoskeletal: Musculoskeletal: Reports no additional musculoskeletal complaints Neurologic: Reports system reviewed and no additional complaints, except as documented Endocrine: Endocrine: Reports no additional endocrine complaints Hematologic/Lymphatic: Hematologic/Lymphatic: Reports no additional hematologic/lymphatic complaints Allergic/Immunologic: Allergic/Immunologic: Reports no additional allergic/immunologic complaints Exam Const: General: comfortable and no acute distress Other: Pleasant obese black male in no distress HENMT: Mouth: Yes moist mucous membranes Eyes: Sclera: sclerae normal Pupils: Equal, round and reactive pupils present Neck: Neck: no JVD Thyroid: thyroid normal Other: Carotid pulses are normal upstrokes bilaterally no bruits are audible Resp: Effort & Inspection: normal respiratory effort Auscultation: clear to auscultation bilaterally Cardio: Rate: regular rate Rhythm: regular rhythm Other: No current murmur gallop or rub PMI is difficult to palpate given his size GI: Auscultation: normal bowel sounds Skin: General skin exam: normal color Neuro: Cranial nerves: Yes Equal, round and reactive pupils present Cognition (Neuro): normal cognition Extrem: General: normal to inspection Objective Data Vital Signs Vital Signs: Vital Signs - 24 hr 04/28/20 15:57 04/28/20 16:30 04/28/20 20:00 Temperature 36.8 C Pulse Rate 85 92 91 Respiratory Rate 21 H 20 Blood Pressure 158/103 H 196/138 H Pulse Oximetry 95 04/28/20 20:40 04/28/20 22:00 04/29/20 00:00 Temperature 37.0 C Pulse Rate 96 96 93 Respiratory Rate 18 Blood Pressure 148/90 H Pulse Oximetry 98 04/29/20 04:00 04/29/20 05:41 04/29/20 08:00 Temperature 36.8 C Pulse Rate 81 92 98 Respiratory Rate 16 16 Blood Pressure 181/106 H 157/103 H Pulse Oximetry 99 98 04/29/20 08:30 04/29/20 08:57 04/29/20 10:10 Temperature Pulse Rate 98 98 Respiratory Rate Blood Pressure 156/94 H Pulse Oximetry 04/29/20 12:00 04/29/20 14:05 [place]
[2020-04-29] MEDS: POTASSIUM CHLORIDE 20 MEQ PACKET (FOR LIQUID) 40 MEQ PO (16:06)
[2020-04-29] MEDS: amLODIPine BESYLATE 5 MG TABLET 10 MG PO (16:06)
--- NOTE | 2020-04-29 17:28 | PM.IMPN ---
Progress Note: A&P Assessment and Plan (1) Hypertensive urgency: Code(s): I16.0 - Hypertensive urgency Status: Acute Assessment and Plan: 04/29/20 17:28 patient is a 50-year-old male with history of hypertension patient has been seen by his primary physician and had been taking amlodipine, hydralazine and lisinopril to control his blood pressure patient states he is compliant with his medication however his blood pressure remains high, he was seen by his primary care physician for routine check he did not have any complaints however his systolic blood pressure was over 200, an EKG was abnormal, patient was referred to the emergency department for further evaluation, currently patient is in ICU room 8. he was seen by plastic card grader cardroom and recommended patient will benefit adding metoprolol 50 mg b.i.d. to his current regimen, will continue to monitor his blood pressure while in the hospital, to further evaluate patient had a renal artery ultrasound which did not show any stenosis, cardiac echo is pending. upon arrival patient had mildly elevated tropes and flat unlikely acute coronary syndrome rather demand ischemia due to severely elevated systolic blood pressure, today 04/29 patient was seen by plastic card grader cardroom patient BP was still elevated in 160/100 and patient was given extra dose of Hydralzine 50mg and BP was rechecked after over 1 hour now its systolic is 180, will monitor patient overnight and plan tomorrow. Patint denies any CP, SOB or dizziness. (2) Elevated serum creatinine: Code(s): R79.89 - Other specified abnormal findings of blood chemistry Status: Acute Assessment and Plan: most likely secondary longstanding hold hypertension will monitor (3) Hypokalemia: Code(s): E87.6 - Hypokalemia Status: Acute Assessment and Plan: will supplement (4) Shortness of breath: Code(s): R06.02 - Shortness of breath Status: Acute Assessment and Plan: resolved (5) Elevated troponin level: Code(s): R77.8 - Other specified abnormalities of plasma proteins Status: Acute Assessment and Plan: mildly and flat unlikely acute coronary syndrome (6) Leukocytosis: Code(s): D72.829 - Elevated white blood cell count, unspecified Status: Acute Assessment and Plan: most likely secondary to stress due to elevated blood pressure trending down (7) Gout: Code(s): M10.9 - Gout, unspecified Status: Acute Assessment and Plan: clinically stable (8) Morbid obesity: Code(s): E66.01 - Morbid (severe) obesity due to excess calories Status: Acute Assessment and Plan: patient will benefit from dietary consult (9) Suspected sleep apnea: Code(s): R29.818 - Other symptoms and signs involving the nervous system Status: Acute Assessment and Plan: patient will benefit from sleep study and pulmonology consult Subjective Date/time seen: 04/29/20 17:28 patient is a 50-year-old male with history of hypertension patient has been seen by his primary physician and had been taking amlodipine, hydralazine and lisinopril to control his blood pressure patient states he is compliant with his medication however his blood pressure remains high, he was seen by his primary care physician for routine check he did not have any complaints however his systolic blood pressure was over 200, an EKG was abnormal, patient was referred to the emergency department for further evaluation, currently patient is in ICU room 8. he was seen by plastic card grader cardroom and recommended patient will benefit adding metoprolol 50 mg b.i.d. to his current regimen, will continue to monitor his blood pressure while in the hospital, to further evaluate patient had a renal artery ultrasound which did not show any stenosis, cardiac echo is pending. upon arrival patient had mildly elevated tropes and flat unlikely acute
[2020-04-30] VITALS (9 sets, daily range): BP systolic 132–149; BP diastolic 79–95; PULSE 86–94; RESP 18–20; TEMP 35.9–36.2; O2SAT 98–99
[2020-04-30] MEDS: hydrALAZINE HCL 50 MG TABLET PO ×2 (06:16→13:51)
[2020-04-30] MEDS: COLCHICINE 0.6 MG TABLET PO (09:13)
[2020-04-30] MEDS: METOPROLOL TARTRATE 50 MG TAB PO (09:13)
[2020-04-30] MEDS: allopurinoL 300 MG TABLET PO (09:14)
[2020-04-30] MEDS: lisinopriL 20 MG TABLET PO (09:14)
--- NOTE | 2020-04-30 10:31 | PM.PNCARD ---
Progress Note: A&P Assessment and Plan (1) Hypertensive urgency: Code(s): I16.0 - Hypertensive urgency Status: Acute Assessment and Plan: BP remains elevated but acceptably improved. Continue Hydralazine 50 mg 3 times daily. EF mildly reduced at 50-55% with moderate LVH most likely hypertensive heart disease. No CHF. -Pt stable for discharge from [facility] follow up as scheduled. (2) Acute kidney injury: Code(s): N17.9 - Acute kidney failure, unspecified Status: Acute Assessment and Plan: Improved, labs not drawn this AM. I have placed order, pending. (3) Hypokalemia: Code(s): E87.6 - Hypokalemia Status: Acute Assessment and Plan: BMP pending. Replete K+ as warranted. May need to check as outpatient if he will require ongoing supplementation. Subjective Date/time seen: Date of service: 04/30/20 10:31 Follow-up for uncontrolled hypertension feels well this morning. BP improved, denies dizziness, lightheadedness, chest pain, shortness of breath, palpitations. No new issues overnight. Patient would like to go home. Review of Systems Constitutional: Constitutional: Reports no additional constitutional complaints Eyes: Eyes: Reports no additional eye complaints ENT: Reports system reviewed and no additional complaints, except as documented Cardiovascular: Cardiovascular: Reports no additional cardiovascular complaints Respiratory: Respiratory: Reports no additional respiratory complaints Gastrointestinal: Gastrointestinal: Reports no additional gastrointestinal complaints Musculoskeletal: Musculoskeletal: Reports no additional musculoskeletal complaints Neurologic: Reports system reviewed and no additional complaints, except as documented Endocrine: Endocrine: Reports no additional endocrine complaints Hematologic/Lymphatic: Hematologic/Lymphatic: Reports no additional hematologic/lymphatic complaints Allergic/Immunologic: Allergic/Immunologic: Reports no additional allergic/immunologic complaints Exam Const: General: comfortable and no acute distress Other: Pleasant obese black male in no distress HENMT: Mouth: Yes moist mucous membranes Eyes: Sclera: sclerae normal Pupils: Equal, round and reactive pupils present Neck: Neck: no JVD Thyroid: thyroid normal Other: Carotid pulses are normal upstrokes bilaterally no bruits are audible Resp: Effort & Inspection: normal respiratory effort Auscultation: clear to auscultation bilaterally Cardio: Rate: regular rate Rhythm: regular rhythm Other: No current murmur gallop or rub PMI is difficult to palpate given his size GI: Auscultation: normal bowel sounds Skin: General skin exam: normal color Neuro: Cranial nerves: Yes Equal, round and reactive pupils present Cognition (Neuro): normal cognition Extrem: General: normal to inspection Objective Data Vital Signs Vital Signs: Vital Signs - 24 hr 04/29/20 12:00 04/29/20 14:05 04/29/20 16:00 Temperature 37.1 C Pulse Rate 81 84 88 Respiratory Rate 15 Blood Pressure 160/100 H Pulse Oximetry 98 04/29/20 17:24 04/29/20 20:00 04/29/20 20:31 Temperature Pulse Rate 90 88 Respiratory Rate Blood Pressure 180/102 H Pulse Oximetry 04/29/20 21:23 04/29/20 22:23 04/30/20 00:00 Temperature 36.4 C L Pulse Rate 96 88 Respiratory Rate 20 Blood Pressure 155/106 H 145/90 H Pulse Oximetry 99 04/30/20 04:00 04/30/20 06:00 04/30/20 08:00 Temperature 36.2 C L Pulse Rate 88 86 94 Respiratory Rate 20 Blood Pressure 141/79 H Pulse Oximetry 98 04/30/20 08:47 04/30/20 09:13 04/30/20 10:24 Temperature Pulse Rate 88 90 Respiratory Rate 18 Blood Pressure 149/90 H 149/93 H Pulse Oximetry Intake/Output Intake/Output: Intake & Output 04/27/20 04/28/20 04/29/20 04/30/20 23:59 23:59 23:59 23:59 Intake Total 1525 1330 620 Output Total 600 Balance 925 1330 6
[2020-04-30 10:46] LABS: Anion Gap 8 mmol/L (8-16); Blood Urea Nitrogen 20 mg/dL (9-20); Carbon Dioxide 30 mmol/L (22-30); Chloride 103 mmol/L (98-107); Estimated CRCL calculation 84 ml/min; Estimated Glomerular Filt Rate > 60; Glucose 166 mg/dL (75-110); Potassium 3.2 mmol/L (3.4-5.0); Sodium 141 mmol/L (137-145)
--- NOTE | 2020-04-30 12:42 | PM.DS ---
DS: Admitting Diagnosis Admitting Diagnosis Admitting Diagnosis: Abnormal EKG. DS: Discharge Diagnosis Discharge Diagnosis (1) Hypertensive urgency: Code(s): I16.0 - Hypertensive urgency Status: Acute Assessment and Plan: Patient is a 50-year-old male with history of hypertension patient has been seen by his primary physician and had been taking amlodipine, hydralazine and lisinopril to control his blood pressure, he was seen by his primary care physician for routine check he did not have any complaints however his systolic blood pressure was over 200, an EKG was abnormal, patient was referred to the emergency department for further evaluation. As per previous notes, pt is now stable for discharge, Bp has corrected. Seen by cardiology was initially in ICU for HTN urgency. Pt was advised compliance to medications. (2) Elevated serum creatinine: Code(s): R79.89 - Other specified abnormal findings of blood chemistry Status: Acute Assessment and Plan: Secondary longstanding hold hypertension will monitor as outpatient. (3) Hypokalemia: Code(s): E87.6 - Hypokalemia Status: Acute Assessment and Plan: Will supplement with potassium and monitor again before adding potassium to his longterm medications. (4) Shortness of breath: Code(s): R06.02 - Shortness of breath Status: Resolved Assessment and Plan: Resolved (5) Elevated troponin level: Code(s): R77.8 - Other specified abnormalities of plasma proteins Status: Acute Assessment and Plan: Flat unlikely to be acute coronary syndrome (6) Leukocytosis: Code(s): D72.829 - Elevated white blood cell count, unspecified Status: Acute Assessment and Plan: Most likely secondary to stress due to elevated blood pressure (7) Gout: Code(s): M10.9 - Gout, unspecified Status: Acute Assessment and Plan: Clinically stable (8) Morbid obesity: Code(s): E66.01 - Morbid (severe) obesity due to excess calories Status: Acute Assessment and Plan: Patient will benefit from dietary consult, PCP to follow. (9) Suspected sleep apnea: Code(s): R29.818 - Other symptoms and signs involving the nervous system Status: Acute Assessment and Plan: Patient will benefit from sleep study and pulmonology consult PCP to follow. DS: Summary Time Spent with Patient Time attestation: Total time spent providing and/or coordinating discharge services: 40 minutes on day of discharge Exam Narrative: Exam Narrative: Patient is comfortable HEENT: eyes are clear and none icteric LUNGS:CTA HEART: RR S1S2 ABD: BS+, Soft and nontender Lower extremities: no edema SKIN: nonjaundiced Neuro: grossly intact. DS: Data Data Completed and Pending Labs on day of discharge: Labs from last 24 hours 04/30/20 10:09 Sodium 141 Potassium 3.2 L Chloride 103 Carbon Dioxide 30 Anion Gap 8 BUN 20 Creatinine 1.40 H Estim Creat Clear Calc 84 Estimated GFR > 60 Glucose 166 H Calcium 9.0 Discharge Plan Discharge Attending physician on discharge: Rachel Taylor Consulting providers: Lisa Narvaez ; Camron Rico Discharging Clinician: Rachel Taylor Anticipated Discharge Date/Time: 04/30/20 12:39 Patient Disposition: Home, Self-Care Activity: other - see discharge instructions Diet: low sodium Discharge Instructions: CARDIOLOGY DISCHARGE INSTRUCTIONS: ACTIVITY:Activity with precautions to avoid falls. Rise slowly from a seated or lying position. Take your medications at the same time every day. Obtain a blood pressure cuff with a properly fitted cuff. Check your blood pressure on a daily basis after you have taking your morning medications. Write these down and bring the readings to your follow-up appointments. FOLLOW-UP: Follow-up with Dr. Hill 1-2 we
[2020-04-30] MEDS: POTASSIUM CHLORIDE 20 MEQ TABLET PO (13:50)
== END 2020-04-30 14:09 | disposition home or self-care (01) ==
LOC: ANHED 15:15 → ANHICU 19:02 → ANH2MED 04-28 17:18 → ANHICU 05-04 13:04
PROVIDERS: Internal Medicine; Internal Medicine Cardiovascular Disease; Admitting Provider Family Medicine; Emergency Provider Emergency Medicine; PCP Family Medicine; Visit Provider Family Medicine
DX: I16.0 Hypertensive urgency (principal); R06.02 Shortness of breath; N17.9 Acute kidney failure, unspecified; D72.829 Elevated white blood cell count, unspecified; E66.01 Morbid (severe) obesity due to excess calories; E87.6 Hypokalemia; I10 Essential (primary) hypertension; M10.9 Gout, unspecified; R79.89 Other specified abnormal findings of blood chemistry; R77.8 Other specified abnormalities of plasma proteins; Z68.42 Body mass index [BMI] 45.0-49.9, adult
CPT/HCPCS: 36415; 71046; 71275; 80048; 80053; 83735; 83880; 84484; 85025; 85027; 85380; 93005; 93306; 93976; 94762; 96374; 96375; 96376; 99285; A9270; G0378; J0360; Q9967

== ENCOUNTER 2020-10-29 08:23 | Outpatient (CLI) | payer BC, SELFPAY ==
--- NOTE | ~2020-10-29 | XR_ITS ---
XR ankle LT min 3V DATE: 10/29/2020 08:45 INDICATION: Pain and swelling TECHNIQUE: 4 views COMPARISON: None FINDINGS: There is a screw in the medial malleolus and plate and screws along the distal fibula. Ther e is bony bridging across the distal tibia fibula. There is osteoarthritic change at the tibiotalar joint. No recent fracture or dislocation of the ankle or disruption of the ankle mortise. Slight plantar and mild posterior calcaneal enthesopathy. Osteopenia. 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
== END 2020-10-29 08:24 | disposition home or self-care (01) ==
PROVIDERS: PCP Family Medicine; Visit Provider Physician Assistant
DX: M19.072 Primary osteoarthritis, left ankle and foot (principal); M77.32 Calcaneal spur, left foot; Z98.890 Other specified postprocedural states
CPT/HCPCS: 73610